=== PATIENT | female | born 1975 | race Caucasian/White ===

== ENCOUNTER 2020-12-14 06:00 | Day surgery (SDC) | payer BC, SELFPAY ==
[~2020-12-14] VITALS: Ht 165.1 cm; Wt 89.8 kg
[2020-12-14 06:43] LABS: HCG,QUAL RESULT NEGATIVE (NEGATIVE)
[2020-12-14] MEDS ORDERED: OXYCODONE/ACETAMINOPHEN 5-325 TABLET PO PRN ×3 (07:45→09:15)
[2020-12-14] MEDS ORDERED: MEPERIDINE HCL/PF 25 MG/ML DISP.SYRIN IVP PRN (07:45)
[2020-12-14] MEDS ORDERED: fentaNYL CITRATE/PF 100 MCG/2 ML AMP IVP PRN (07:45)
[2020-12-14] MEDS ORDERED: LR 1,000 ML IV SCH (07:45)
[2020-12-14] MEDS ORDERED: PROPOFOL 200MG/ 20ML VIAL (DIPRIVAN) IV ONE (08:07)
[2020-12-14] MEDS ORDERED: METOCLOPRAMIDE HCL 10 MG/2 ML VIAL IVP ONE (08:07)
[2020-12-14] MEDS ORDERED: KETOROLAC TROMETHAMINE 30 MG VIAL IVP ONE (08:07)
[2020-12-14] MEDS ORDERED: fentaNYL CITRATE/PF 100 MCG/2 ML AMP IVP ONE (08:07)
[2020-12-14] MEDS ORDERED: ROCURONIUM BROMIDE 10 MG/ML (ZEMURON) IV ONE (08:07)
[2020-12-14] MEDS ORDERED: LIDOCAINE 1% 10 MG/ML, 20 ML MDV INJ ONE (08:07)
[2020-12-14] MEDS ORDERED: NEOSTIGMINE METHYLSULFATE 1 MG/ML, 10 ML VIAL IVP ONE (08:07)
[2020-12-14] MEDS ORDERED: LR 1,000 ML IV.SOLN IV ONE (08:07)
[2020-12-14] MEDS ORDERED: ONDANSETRON HCL 4 MG/2 ML VIAL IVP ONE (08:07)
[2020-12-14] MEDS ORDERED: DEXAMETHASONE SOD PHOSPHATE 4 MG/ML VIAL IVP ONE (08:07)
[2020-12-14] MEDS ORDERED: GLYCOPYRROLATE 0.2 MG/ML VIAL IJ ONE (08:07)
[2020-12-14] MEDS ORDERED: SEVOFLURANE 15 MIN GAS INH ONE (08:07)
[2020-12-14] MEDS ORDERED: NS IRRIG SOLN 5000 ML IR ONE (08:07)
[2020-12-14] MEDS ORDERED: ONDANSETRON HCL 4 MG/2 ML VIAL IM PRN (09:15)
[2020-12-14] MEDS ORDERED: IBUPROFEN 800 MG TABLET PO PRN (09:15)
[2020-12-14] MEDS: fentaNYL CITRATE/PF 100 MCG/2 ML AMP ONE ×2 (09:58→10:08)
[2020-12-14 12:30] VITALS: BP_SYST 116
== END 2020-12-14 11:55 | disposition home or self-care (01) ==
LOC: SMU 06:00 → SDS 06:00
PROVIDERS: ATTEND Obstetrics & Gynecology
DX: N92.0 Excessive and frequent menstruation with regular cycle (principal); N84.0 Polyp of corpus uteri; G47.33 Obstructive sleep apnea (adult) (pediatric); K21.9 Gastro-esophageal reflux disease without esophagitis; E78.5 Hyperlipidemia, unspecified; M54.12 Radiculopathy, cervical region; Z91.040 Latex allergy status; Z88.8 Allergy status to other drugs, medicaments and biological substances; Z20.822 Contact with and (suspected) exposure to COVID-19; Z79.899 Other long term (current) drug therapy
CPT/HCPCS: 58558; 84703; 88305; C1819; J1100; J1885; J2001; J2405; J2704; J2710; J2765; J3010; J3490; J7120; U0003